=== PATIENT | female | born 1970 | race Caucasian/White ===

== ENCOUNTER 2019-07-06 17:44 | Emergency (ER) | payer OTHER, MEDICAID ==
[~2019-07-06] VITALS: Ht 175.3 cm; Wt 74.8 kg
[~2019-07-06 17:44] MED LIST: ALEVE220 MG PO; CELEXA20 MG PO; CEPHALEXIN 500500 M3 PO; HYDROCODONE-AP1 EAC6 PO; L-LYSINE500 M1 PO; LEXAPRO 10 MG T10 MG PO; MOBIC15 MG PO; SPRINTEC1 EACH PO; VITAMINC500 PO
[2019-07-06] MEDS ORDERED: NORCO 5-325 TA1 EAC1 PO (19:16)
[2019-07-06] MEDS ORDERED: IBUPROFEN 600600 M1 PO (19:16)
[2019-07-06 19:42] VITALS: BP 140/92
== END 2019-07-06 19:44 | disposition home or self-care (01) ==
LOC: M.ERS 17:44
DX: S93.492A Sprain of other ligament of left ankle, initial encounter (principal); Z88.2 Allergy status to sulfonamides; W10.8XXA Fall (on) (from) other stairs and steps, initial encounter; Y93.89 Activity, other specified; Y92.89 Other specified places as the place of occurrence of the external cause; Y99.8 Other external cause status

== ENCOUNTER 2020-02-23 14:14 | Emergency (ER) | payer OTHER, MEDICAID ==
[~2020-02-23] VITALS: Ht 175.3 cm; Wt 76.7 kg
[~2020-02-23 14:14] MED LIST changes: +IBUPROFEN 600600 M1 PO; +NORCO 5-325 TA1 EAC1 PO
[2020-02-23] MEDS ORDERED: CELEXA 20 MG TA20 MG PO (14:27)
[2020-02-23] MEDS ORDERED: DEPO-PROVE150 MG/11 IM (14:27)
[2020-02-23] MEDS ORDERED: IBUPROFEN 800800 M1 PO (15:17)
[2020-02-23 15:20] VITALS: BP 149/74
[2020-02-23] MEDS ORDERED: NORCO 5-325 TA1 EAC2 PO (15:21)
== END 2020-02-23 15:22 | disposition home or self-care (01) ==
LOC: M.ERS 14:14
DX: S90.122A Contusion of left lesser toe(s) without damage to nail, initial encounter (principal); Z79.899 Other long term (current) drug therapy; Z88.2 Allergy status to sulfonamides; W20.8XXA Other cause of strike by thrown, projected or falling object, initial encounter; Y93.89 Activity, other specified; Y92.89 Other specified places as the place of occurrence of the external cause; Y99.8 Other external cause status

== ENCOUNTER 2020-07-07 11:54 | Emergency (ER) | payer OTHER, MEDICAID ==
[~2020-07-07] VITALS: Ht 172.7 cm; Wt 68.0 kg
[~2020-07-07 11:54] MED LIST changes: +CELEXA 20 MG TA20 MG PO; +DEPO-PROVE150 MG/11 IM; +IBUPROFEN 800800 M1 PO; +NORCO 5-325 TA1 EAC2 PO
[2020-07-07 13:03] VITALS: BP 122/80
== END 2020-07-07 13:05 | disposition home or self-care (01) ==
LOC: M.ERS 11:54
DX: S61.210A Laceration without foreign body of right index finger without damage to nail, initial encounter (principal); Z88.2 Allergy status to sulfonamides; W26.8XXA Contact with other sharp object(s), not elsewhere classified, initial encounter; Y93.89 Activity, other specified; Y92.89 Other specified places as the place of occurrence of the external cause; Y99.8 Other external cause status

== ENCOUNTER 2020-08-08 21:32 | Emergency (ER) | payer OTHER, MEDICAID ==
[~2020-08-08] VITALS: Ht 175.3 cm; Wt 74.8 kg
[2020-08-08] MEDS ORDERED: PROZAC40 MG PO (21:44)
[2020-08-08 22:35] LABS: ABSOLUTE BASOPHILS 0.1 thou/uL (0.0-0.2); ABSOLUTE EOSINOPHILS 0.4 thou/uL (0.0-0.7); ABSOLUTE LYMPHOCYTES 2.1 thou/uL (0.8-5.3); ABSOLUTE MONOCYTES 0.5 thou/uL (0.0-1.2); ABSOLUTE NEUTROPHILS 6.1 thou/uL (1.6-8.1); BASOPHILS 1.1 %; EOSINOPHILS 3.9 %; HEMATOCRIT 42.4 % (37.0-47.0); HEMOGLOBIN 14.2 gm/dL (12.0-15.0); LYMPHOCYTES 22.6 %; MCH 30.8 pg (26.0-34.0); MCHC 33.5 g/dL (28.0-37.0); MONOCYTES 5.4 %; MPV 8.3 fl. (7.2-11.1); NUCLEATED RBCS 0 /100WBC; PLATELET COUNT* 329 thou/uL (150-400); RDW-CV 13.2 % (10.5-14.5); WBC 9.1 thou/uL (4.0-11.0)
[2020-08-08 22:44] LABS: PROTIME 10.3 Seconds (9.20-11.50)
[2020-08-08 22:46] LABS: CALCIUM 8.8 mg/dL (8.5-10.1); CREATININE 1.1 mg/dL (0.6-1.3)
[2020-08-08 22:51] LABS: ALBUMIN 3.7 g/dL (3.4-5.0); TOTAL BILIRUBIN 0.4 mg/dL (<0.1-1.0); TOTAL PROTEIN 7.1 g/dL (6.4-8.2)
[2020-08-08 23:47] LABS: ESR (SEDRATE) 9 mm/hr (0-30)
[2020-08-09] MEDS ORDERED: PERCOCET 5-3251 EACH PO (00:10)
[2020-08-09 00:16] VITALS: BP 141/45
== END 2020-08-09 00:16 | disposition home or self-care (01) ==
LOC: M.ERS 21:32
PROVIDERS: Family Medicine
DX: M25.561 Pain in right knee (principal); Z88.2 Allergy status to sulfonamides

== ENCOUNTER 2020-10-22 17:22 | Emergency (ER) | payer OTHER, MEDICAID ==
[~2020-10-22] VITALS: Ht 175.3 cm; Wt 77.1 kg
[~2020-10-22 17:22] MED LIST changes: +PERCOCET 5-3251 EACH PO; +PROZAC40 MG PO
[2020-10-22 18:00] VITALS: BP 135/76
== END 2020-10-22 18:00 | disposition home or self-care (01) ==
LOC: M.ERS 17:22
DX: S01.81XA Laceration without foreign body of other part of head, initial encounter (principal); Z98.890 Other specified postprocedural states; Z79.899 Other long term (current) drug therapy; Z88.2 Allergy status to sulfonamides; W22.8XXA Striking against or struck by other objects, initial encounter; Y93.89 Activity, other specified; Y92.89 Other specified places as the place of occurrence of the external cause; Y99.8 Other external cause status